=== PATIENT | female | born 1990 | race American Indian/Alaskan Native ===

== ENCOUNTER 2019-11-26 18:23 | Emergency (ER) | payer MEDICAID ==
[2019-11-26 19:14] LABS: Basophils # (Auto) 0.1 K/mm3 (0.0-0.1); Basophils % (Auto) 0.7 % (0.0-1.8); Eosinophils # (Auto) 0.1 K/mm3 (0.0-0.4); Eosinophils % (Auto) 0.8 % (0.0-4.3); Hematocrit 39.9 % (30.3-42.9); Hemoglobin 13.2 gm/dl (10.1-14.3); Lymphocytes # (Auto) 2.1 K/mm3 (1.2-5.4); Lymphocytes % (Auto) 24.5 % (13.4-35.0); Mean Corpuscular HGB Conc 33 % (30-34); Mean Corpuscular Volume 93 fl (79-97); Monocytes % (Auto) 11.2 % (0.0-7.3); Platelet Count 237 K/mm3 (140-440); Red Blood Count 4.27 M/mm3 (3.65-5.03); Red Cell Distribution Width 13.5 % (13.2-15.2)
[2019-11-26 19:27] LABS: Calcium 9.8 mg/dL (8.4-10.2)
[2019-11-26 20:06] LABS: Bilirubin,Urine NEG (Negative); Blood,Urine NEG (Negative); Color,Urine Yellow (Yellow); Hyaline Casts,Urine 1 /LPF; Mucus,Urine 3+ /HPF; Protein,Urine <15 mg/dL mg/dL (Negative); Urobilinogen,Urine < 2.0 mg/dL (<2.0)
[2019-11-26 20:39] LABS: Amphetamine Screen,Urine PRESUMPTIVE POSITIVE; Benzodiazepines Screen,Urine PRESUMPTIVE NEGATIVE; Cannabinoid Screen,Urine PRESUMPTIVE POSITIVE; Cocaine Screen,Urine PRESUMPTIVE POSITIVE; Methadone Screen,Urine PRESUMPTIVE NEGATIVE; Opiate Screen,Urine PRESUMPTIVE NEGATIVE
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
[2019-11-26] MEDS ORDERED: ZIPRASIDONE MESYLATE 20 MG VIAL IM ONE ×2 (22:03→22:05)
[2019-11-26] MEDS ORDERED: diphenhydrAMINE 50 MG/ML VIAL IM ONE (22:04)
[2019-11-26] MEDS ORDERED: LORazepam 2 MG/ML VIAL IM ONE (22:04)
[2019-11-26] MEDS ORDERED: LORazepam 2 MG/ML VIAL ONE (22:06)
[2019-11-26] MEDS ORDERED: diphenhydrAMINE 50 MG/ML VIAL ONE (22:06)
[2019-11-27] MEDS ORDERED: ZIPRASIDONE MESYLATE 20 MG VIAL IM ONE ×2 (16:58→17:02)
[2019-11-27 20:39] VITALS: BP 101/69
== END 2019-11-27 22:25 ==
LOC: ED 18:23
DX: F23 Brief psychotic disorder (principal); F22 Delusional disorders; F32.9 Major depressive disorder, single episode, unspecified; F41.9 Anxiety disorder, unspecified
CPT/HCPCS: 36415; 80048; 80307; 81001; 84703; 85025; 96372; 99285; J1200; J2060; J3486; 80320; G0480